=== PATIENT | female | born 1990 | race Caucasian/White ===

== ENCOUNTER 2017-02-27 22:39 | Emergency (ER) | payer SELFPAY | END 2017-02-27 23:25 | disposition left against medical advice (07) | LOC: JER 22:39 | DX: Z53.21 Procedure and treatment not carried out due to patient leaving prior to being seen by health care provider (principal) | CPT/HCPCS: 99281-25 ==

== ENCOUNTER 2017-03-13 06:14 | Emergency (ER) | payer SELFPAY ==
[2017-03-13 06:51] VITALS: BMI 23.9
--- NOTE | 2017-03-13 07:33 | PDOC ---
History of Present Illness - General History Source: Patient Exam Limitations: No Limitations - History of Present Illness Initial Comments: 03/13/17 07:55 The patient is a 27 year old female, with no significant past medical history who presents to the emergency department with lump under her chin for about 2 weeks. The patient denies having any pain in her chin or around the lump. She denies any redness or bruising around her lump. She denies recent fevers, chills , headache or dizziness. She denies recent nausea, vomit, diarrhea or constipation. She denies recent dysuria, frequency, urgency or hematuria. She denies recent chest pain or shortness of breath. Allergies: NKA Past surgical history: None reported. Social history: Nonsmoker. Denies EtOH use and recreational drug use. Primary Care Physician: None <Gabe Sofia - Last Filed: 03/13/17 07:55> - General History Source: Patient Exam Limitations: No Limitations <Jayla Luna - Last Filed: 03/13/17 10:08> - General Chief Complaint: Edema Stated Complaint: LUMP UNDER CHIN Past History <Gabe Sofia - Last Filed: 03/13/17 07:55> - Past Medical History Asthma: No Cancer: No Cardiac Disorders: No Diabetes: No HTN: No Seizures: No Thyroid Disease: No - Immunization History Td Vaccination: Yes Immunization Up to Date: Yes - Psycho/Social/Smoking Cessation Hx Anxiety: No Suicidal Ideation: No Smoking Status: No Smoking History: Never smoked Years of Tobacco Use: 0 Have you smoked in the past 12 months: No Number of Cigarettes Smoked Daily: 0 Cigars Per Day: 0 Information on smoking cessation initiated: No Hx Alcohol Use: No Drug/Substance Use Hx: No Substance Use Type: None Hx Substance Use Treatment: No <Jayla Luna - Last Filed: 03/13/17 10:08> - Past Medical History Allergies/Adverse Reactions: Allergies Allergy/AdvReac Type Severity Reaction Status Date / Time No Known Allergies Allergy Verified 03/13/17 06:54 Home Medications: Ambulatory Orders NK [No Known Home Medication] 03/13/17 Review of Systems - Review of Systems Able to Perform ROS?: Yes Comments:: 03/13/17 07:55 GENERAL/CONSTITUTIONAL: No fever or chills. No weakness. HEAD, EYES, EARS, NOSE AND THROAT: +lump under chin. No change in vision. No ear pain or discharge. No sore throat. CARDIOVASCULAR: No chest pain or shortness of breath. RESPIRATORY: No cough, wheezing, or hemoptysis. GASTROINTESTINAL: No nausea, vomiting, diarrhea or constipation. GENITOURINARY: No dysuria, frequency, or change in urination. MUSCULOSKELETAL: No joint or muscle swelling or pain. No neck or back pain. SKIN: No rash NEUROLOGIC: No headache, vertigo, loss of consciousness, or change in strength/ sensation. ENDOCRINE: No increased thirst. No abnormal weight change. HEMATOLOGIC/LYMPHATIC: No anemia, easy bleeding, or history of blood clots. ALLERGIC/IMMUNOLOGIC: No hives or skin allergy. <Gabe Sofia - Last Filed: 03/13/17 07:55> *Physical Exam - Vital Signs Last Vital Signs Temp Pulse Resp BP Pulse Ox 98 F 72 18 107/80 100 03/13/17 06:49 03/13/17 06:49 03/13/17 06:49 03/13/17 06:49 03/13/17 06:49 - Physical Exam Comments: 03/13/17 07:55 GENERAL: Awake, alert, and fully oriented, in no acute distress HEAD: No signs of trauma EYES: PERRLA, EOMI, sclera anicteric, conjunctiva clear ENT: Auricles normal inspection, hearing grossly normal, nares patent, oropharynx clear without exudates. Moist mucosa. Throat no exudates. No tonsillar erythema. Submental new line shotty lymph node about .5 cm hard, nontender, and mobile. NECK: Normal ROM, supple, no lymphadenopathy, JVD, or masses LUNGS: Breath sounds equal, clear to auscultation bilaterally. No wheezes, and no crackles HEART: Regular rate and rhythm, normal S1 and S2, no murmurs, rubs or gallops ABDOMEN: Soft, nontender, normoactive bowel sounds. No guarding, no rebound. No masses EXTREMITIES: Normal range of motion, no edema. No clubbing or cyanosis. No cords, erythema, or tenderness NEUROLOGICAL: Cranial nerves II through XII grossly intact. Normal speech, normal gait SKIN: Warm, Dry, normal turgor, no rashes or lesions noted. <Gabe Sofia - Last Filed: 03/13/17 07:55> - Vital Signs Last Vital Signs Temp Pulse Resp BP Pulse Ox 98 F 72 18 107/80 100 03/13/17 06:49 03/13/17 06:49 03/13/17 06:49 03/13/17 06:49 03/13/17 06:49 <Jayla Luna - Last Filed: 03/13/17 10:08> ED Treatment Course - LABORATORY CBC & Chemistry Diagram: 03/13/17 07:28 03/13/17 07:28 <Gabe Sofia - Last Filed: 03/13/17 07:55> - LABORATORY CBC & Chemistry Diagram: 03/13/17 07:28 03/13/17 07:28 - RADIOLOGY Radiology Studies Ordered: Category Date Time Status THYROID US [US] Stat Ultrasound 03/13/17 07:17 Ordered <Jayla Luna - Last Filed: 03/13/17 10:08> Medical Decision Making - Medical Decision Making 03/13/17 07:31 27 yo F no pmhx here with c/o lump under her chin. states noted 2 weeks ago. does not have insurance currently, so has no doctor to followup with. was seen at emergency room 2 weeks ago, told to follow up if persistant for more than 2 weeks. no night sweats, no weight loss. no sore throat or diffuculty swallowing. no fatigue. no pain at site. on exam awake alert . throat clear no exudate, no tonsillar hypertrophy. small palp submental lymphadenopathy 0.5 cm. nontender. mobile. plan us , labs evalute cbc, <Jayla Luna - Last Filed: 03/13/17 10:08> *DC/Admit/Observation/Transfer - Attestations Scribe Attestion: 03/13/17 07:55 Documentation prepared by Gabe Sofia, acting as infertility medical assistant for Jayla Luna MD. <Gabe Sofia - Last Filed: 03/13/17 07:55> - Discharge Dispostion Admit: No <Jayla Luna - Last Filed: 03/13/17 10:08> Diagnosis at time of Disposition: Lymphadenopathy of head and neck - Discharge Dispostion Disposition: HOME Condition at time of disposition: Improved - Referrals Referrals: Tashi Hare MD [Staff Physician] - - Patient Instructions Printed Discharge Instructions: DI for Lymphadenopathy Additional Instructions: you will need follow up with ear nose and throat you can call dr. Hare see referral information. you can also seek followup at [facility] at [address] [place] [address] call [phone].
[2017-03-13 09:15] LABS: ALBUMIN 3.7 g/dl (3.4-5.0); ANION GAP 6 (8-16); CALCIUM 8.4 mg/dL (8.5-10.1); CO2 30 mmol/L (21-32); CREATININE 0.5 mg/dL (0.55-1.02); GLUCOSE,RANDOM 84 mg/dL (74-106); SGOT/AST 14 U/L (15-37); SGPT/ALT 19 U/L (12-78)
[2017-03-13 09:17] LABS: ALK PHOS 73 U/L (45-117); BILIRUBIN,TOTAL 0.6 mg/dL (0.2-1.0)
[2017-03-13 09:40] LABS: BASOPHIL 0.8 % (0-2.0); EOSINOPHIL 2.6 % (0-4.5); MCH 29.2 pg (25.7-33.7); MCHC 32.6 g/dl (32.0-36.0); MEAN CELL VOLUME 89.5 fl (80-96); MEAN PLT VOLUME 11.4 fl (7.5-11.1); PLATELET COUNT 162 K/MM3 (134-434); RDW 12.9 % (11.6-15.6); WHITE BLOOD COUNT 8.7 K/mm3 (4.0-10.0)
[2017-03-13 10:28] VITALS: BP 110/75; PULSE 76; TEMP 97.8
== END 2017-03-13 10:28 | disposition home or self-care (01) ==
LOC: JER 06:14
DX: R59.0 Localized enlarged lymph nodes (principal)
CPT/HCPCS: 36415; 76536-TC; 80053; 84443; 85025; 99284-25

== ENCOUNTER 2020-06-26 17:10 | Emergency (ER) | payer OTHER ==
[2020-06-26 17:19] VITALS: BP 105/64; PULSE 72; TEMP 97.8; BMI 24.7
[2020-06-26] MEDS ORDERED: DIPHTH,PERTUSS(ACELL),TET 0.5 ML DISP.SYRIN IM ONE ×2 (18:16→18:28)
== END 2020-06-26 18:59 | disposition home or self-care (01) ==
LOC: JERFT 17:10
PROC: 3E0234Z Introduction of Serum, Toxoid and Vaccine into Muscle, Percutaneous Approach (ICD-10-PCS; principal; 2020-06-26)
DX: S91.312A Laceration without foreign body, left foot, initial encounter (principal)
CPT/HCPCS: 90715; 99284-25

== ENCOUNTER 2021-04-10 16:15 | Emergency (ER) | payer OTHER ==
[2021-04-10 16:39] VITALS: BP 116/78; PULSE 75; TEMP 98.5; BMI 24.7
[2021-04-10] MEDS ORDERED: MAG HYDROX/AL HYDROX/SIMETH -MYLANTA- ORAL SUSPENSION PO ONE (19:17)
[2021-04-10 19:19] LABS: BASO % 0.6 % (0-2.0); EOS % 2.9 % (0-4.5); HEMATOCRIT 41.8 % (32.4-45.2); HEMOGLOBIN 13.9 GM/dL (10.7-15.3); LYMPH % 27.9 % (8-40); MCH 29.8 pg (25.7-33.7); MCHC 33.2 g/dl (32.0-36.0); MEAN PLT VOLUME 10.5 fl (7.5-11.1); MONO % 4.9 % (3.8-10.2); NEUT % 63.7 % (42.8-82.8); PLATELET COUNT 215 10^3/uL (134-434); RBC 4.65 M/mm3 (3.60-5.2); RDW 13.1 % (11.6-15.6); WHITE BLOOD COUNT 8.6 K/mm3 (4.0-10.0)
[2021-04-10 19:23] LABS: PH,URINE 7.5 (5.0-8.0); URINE APPEARANCE CLEAR; URINE BILIRUBIN NEGATIVE (NEGATIVE); URINE COLOR YELLOW; URINE GLUCOSE (UA) NEGATIVE (NEGATIVE); URINE KETONE TRACE (NEGATIVE); URINE LEUK ESTERASE NEGATIVE (NEGATIVE); URINE NITRITE NEGATIVE (NEGATIVE); URINE PROTEIN NEGATIVE (NEGATIVE)
[2021-04-10] MEDS ORDERED: MAG HYDROX/AL HYDROX/SIMETH 30 ML UNIT-DOSE CUP ONE (19:30)
[2021-04-10 19:45] LABS: BLOOD UREA NITROGEN 10.5 mg/dL (7-18); CALCIUM 9.5 mg/dL (8.5-10.1)
[2021-04-10 19:46] LABS: ALBUMIN 3.9 g/dl (3.4-5.0)
[2021-04-10 19:49] LABS: CREATININE 0.8 mg/dL (0.55-1.3)
[2021-04-10 19:50] LABS: BILIRUBIN,TOTAL 0.2 mg/dL (0.2-1); TOT PROT 7.7 g/dl (6.4-8.2)
== END 2021-04-10 21:51 | disposition home or self-care (01) ==
LOC: JER 16:15
DX: R10.13 Epigastric pain (principal)
CPT/HCPCS: 36415; 71046-TC-FY; 80053; 81003; 83690; 84703; 85025; 93005; 93010; 99285-25